=== PATIENT | male | born 2005 | race African-American/Black ===

== ENCOUNTER 2025-01-30 09:24 | Emergency (ER) | payer SELFPAY ==
[~2025-01-30] VITALS: Ht 172.7 cm; Wt 61.2 kg
[2025-01-30] MEDS ORDERED: METHOCARBAMOL750 M1 PO (09:49)
== END 2025-01-30 10:30 | disposition home or self-care (01) ==
LOC: ED 09:24 → EDBD 09:28 → ED 09:28
DX: S29.011A Strain of muscle and tendon of front wall of thorax, initial encounter (principal); X58.XXXA Exposure to other specified factors, initial encounter; Y93.G3 Activity, cooking and baking; Y92.89 Other specified places as the place of occurrence of the external cause; Y99.8 Other external cause status